=== PATIENT | male | born 1995 | race Caucasian/White ===

== ENCOUNTER 2018-07-31 20:32 | Emergency (ER) | payer MEDICAID ==
[~2018-07-31] VITALS: Ht 177.8 cm; Wt 131.5 kg
[2018-07-31 20:37] VITALS: BP 122/75
--- NOTE | 2018-07-31 20:40 | NUR ---
TO LOBBY A/W BED AND XRAY, AMBULATORY.
[2018-07-31] MEDS ORDERED: IBUPROFEN 600 MG TAB PO ONE (21:30)
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
[2018-07-31 21:50] VITALS: BP 125/76
== END 2018-07-31 21:50 | disposition home or self-care (01) ==
LOC: MED 20:32
DX: S16.1XXA Strain of muscle, fascia and tendon at neck level, initial encounter (principal); M25.511 Pain in right shoulder; R51 Headache; V89.2XXA Person injured in unspecified motor-vehicle accident, traffic, initial encounter; Y93.89 Activity, other specified; Y92.89 Other specified places as the place of occurrence of the external cause; Y99.8 Other external cause status
CPT/HCPCS: 72040; 73030; 99283

== ENCOUNTER 2021-08-15 22:13 | Emergency (ER) | payer BC, MEDICAID ==
[~2021-08-15] VITALS: Ht 172.7 cm; Wt 145.1 kg
[2021-08-15 22:34] VITALS: BP 134/83
--- NOTE | 2021-08-15 23:11 | NUR ---
Patient ambulated to bed 9.
--- NOTE | 2021-08-15 23:31 | NUR ---
PT AMBULATED TO RESTROOM
--- NOTE | 2021-08-16 00:24 | NUR ---
Dr. Gaspar at bedside to exam patient.
[2021-08-16] MEDS ORDERED: NACL 0.9% 1,000 ML IV ONE (00:35)
[2021-08-16] MEDS ORDERED: DICYCLOMINE 20 MG/2 ML VIAL IM ONE ×2 (00:35→01:44)
[2021-08-16] MEDS ORDERED: ONDANSETRON 4 MG/2 ML VIAL IVP ONE (00:35)
--- NOTE | 2021-08-16 00:48 | NUR ---
LAB AT BEDSIDE
[2021-08-16 00:56] LABS: BASOPHILS % (AUTO) 0.2 % (0.0-2.0); EOSINOPHILS # (AUTO) 0.1 K/uL (0-0.4); EOSINOPHILS % (AUTO) 1.1 % (0.0-4.0); HEMATOCRIT 42.7 % (36-52); LYMPHOCYTES % (AUTO) 25.2 % (20.5-51.1); MEAN CORPUSCULAR HEMOGLOBIN 26 pg (27-31); MEAN CORPUSCULAR HGB CONC 33 g/dL (33-37); MEAN CORPUSCULAR VOLUME 78.6 fL (80-94); MONOCYTES % (AUTO) 8.4 % (1.7-9.3); NEUTROPHILS # (AUTO) 7.6 K/uL (1.8-7.7); NEUTROPHILS % (AUTO) 65.1 % (42.2-75.2); PLATELET COUNT (AUTO) 302 K/uL (140-450); RED BLOOD CELL COUNT(AUTO) 5.43 MIL/uL (4.20-6.10); RED CELL DISTRIBUTION WIDTH 14.9 % (11.6-13.7); WHITE BLOOD COUNT (AUTO) 11.7 K/uL (4.8-10.8)
[2021-08-16 01:20] LABS: ALBUMIN 3.8 g/dL (3.4-5.0); ANION GAP 10.7 (8-16); CARBON DIOXIDE 30.8 mmol/L (21-32); CREATININE 0.8 mg/dL (0.6-1.3); POTASSIUM 3.5 mmol/L (3.5-5.1); TOTAL BILIRUBIN 0.3 mg/dL (0.0-1.0)
[2021-08-16] MEDS ORDERED: ONDANSETRON 4 MG/2 ML VIAL ONE (01:44)
[2021-08-16] MEDS ORDERED: BEN10 PO (03:11)
[2021-08-16] MEDS ORDERED: ONDA-188 PO (03:11)
--- NOTE | 2021-08-16 03:25 | NUR ---
PER FRANCISCA HERNANDEZ PT OK FOR D/C W/O URINE DIP.
[2021-08-16 03:32] VITALS: BP 107/57
--- NOTE | 2021-08-16 03:32 | NUR ---
Patient discharged with v/s stable. Written and verbal after care instructions given and explained. Patient alert, oriented and verbalized understanding of instructions. Ambulatory with steady gait. All questions addressed prior to discharge. ID band removed. Patient advised to follow up with PMD. Rx of CHUCKIE DIAZ given. Patient educated on indication of medication including possible reaction and side effects. Opportunity to ask questions provided and answered.
== END 2021-08-16 03:32 | disposition home or self-care (01) ==
LOC: MED 22:13
DX: R11.2 Nausea with vomiting, unspecified (principal); R19.7 Diarrhea, unspecified; R10.9 Unspecified abdominal pain; Z79.899 Other long term (current) drug therapy
CPT/HCPCS: 36415; 80053; 83690; 85025; 96361; 96374; 96375; 99284; J0500; J2405; J7030

== ENCOUNTER 2022-03-22 03:10 | Emergency (ER) | payer BC ==
[~2022-03-22] VITALS: Ht 172.7 cm; Wt 147.0 kg
[~2022-03-22 03:10] MED LIST: BEN10 PO; ONDA-188 PO
[2022-03-22 03:13] VITALS: BP 132/80
--- NOTE | 2022-03-22 04:41 | NUR ---
Dr. Gaspar examining patient.
[2022-03-22] MEDS ORDERED: KETOROLAC 30 MG/ML VIAL IM ONE (04:45)
[2022-03-22] MEDS ORDERED: NAPR-54 PO (04:53)
[2022-03-22] MEDS ORDERED: ACET-10509 PO (04:53)
[2022-03-22 05:18] VITALS: BP 116/76
--- NOTE | 2022-03-22 05:18 | NUR ---
Patient discharged with v/s stable. Written and verbal after care instructions given and explained. Patient alert, oriented and verbalized understanding of instructions. Ambulatory with steady gait. All questions addressed prior to discharge. ID band removed. Patient advised to follow up with PMD. Rx of Naproxen and Tylenol given. Patient educated on indication of medication including possible reaction and side effects. Opportunity to ask questions provided and answered.
== END 2022-03-22 05:18 | disposition home or self-care (01) ==
LOC: MED 03:10
DX: B09 Unspecified viral infection characterized by skin and mucous membrane lesions (principal); Z79.899 Other long term (current) drug therapy
CPT/HCPCS: 96372; 99283; J1885

== ENCOUNTER 2022-05-18 18:24 | Emergency (ER) | payer BC ==
[~2022-05-18] VITALS: Ht 172.7 cm; Wt 145.1 kg
[~2022-05-18 18:24] MED LIST changes: +ACET-10509 PO; +NAPR-54 PO
[2022-05-18 18:32] VITALS: BP 101/80
--- NOTE | 2022-05-18 18:33 | NUR ---
PT AMBULATED TO LOBBY
--- NOTE | 2022-05-18 18:36 | NUR ---
PT AMBULATED TO BED 12
--- NOTE | 2022-05-18 18:45 | NUR ---
26 Y/O M. PATIENT PRESENTS TO ED WITH N/V/D. PT STATES N/V/D FOR 3 DAYS AGO; DENIES TAKING ANY MEDS FOR DIARRHEA. SKIN IS PINK/WARM/DRY; AAOX4 WITH EVEN AND STEADY GAIT; LUNGS CLEAR BL; HR EVEN AND REGULAR; PT DENIES ANY FEVER, CP, SOB, OR COUGH AT THIS TIME; PATIENT STATES PAIN OF 0/10 AT THIS TIME; VSS; PATIENT POSITIONED FOR COMFORT; HOB ELEVATED; BEDRAILS UP X2; BED DOWN. ER MADE AWARE OF PT STATUS. PMH: NONE MEDS: NONE NKA
[2022-05-18] MEDS ORDERED: ONDANSETRON 4 MG ODT PO ONE (18:55)
[2022-05-18] MEDS ORDERED: ALUMINUM HYD/MAG/SIMETHICONE 30 ML, DICYCLOMINE HCL LIQUID 20 MG, LIDOCAINE VISCOUS 2% ... PO ONE ×3 (18:55)
[2022-05-18] MEDS ORDERED: ALUMINUM HYD/MAG/SIMETHICONE 30 ML UDC ONE (18:58)
[2022-05-18] MEDS ORDERED: DICYCLOMINE HCL LIQUID 10 MG/5 ML UDC ONE (18:58)
[2022-05-18 19:18] LABS: BASOPHILS % (AUTO) 0.3 % (0.0-2.0); EOSINOPHILS # (AUTO) 0.1 K/uL (0-0.4); EOSINOPHILS % (AUTO) 1.5 % (0.0-4.0); HEMATOCRIT 40.8 % (36-52); HEMOGLOBIN 13.6 g/dL (12.0-18.0); LYMPHOCYTES % (AUTO) 30.8 % (20.5-51.1); MEAN CORPUSCULAR HEMOGLOBIN 25 pg (27-31); MEAN CORPUSCULAR HGB CONC 33 g/dL (33-37); MEAN CORPUSCULAR VOLUME 76.2 fL (80-94); MONOCYTES # (AUTO) 0.7 K/uL (0.8-1.0); MONOCYTES % (AUTO) 7.2 % (1.7-9.3); NEUTROPHILS # (AUTO) 5.8 K/uL (1.8-7.7); NEUTROPHILS % (AUTO) 60.2 % (42.2-75.2); PLATELET COUNT (AUTO) 294 K/uL (140-450); RED BLOOD CELL COUNT(AUTO) 5.35 MIL/uL (4.20-6.10); RED CELL DISTRIBUTION WIDTH 15.1 % (11.6-13.7); WHITE BLOOD COUNT (AUTO) 9.6 K/uL (4.8-10.8)
--- NOTE | 2022-05-18 19:30 | NUR ---
Patient resting in bed, A/Ox4, chest rise and fall symmetrical, no s/s of distress.
--- NOTE | 2022-05-18 19:30 | NUR ---
Nelia veloz in EDM - 05/18/22 at 2004 by [id number] Patient resting in bed, A/Ox4, chest rise and fall symmetrical, no s/s of distress.
--- NOTE | 2022-05-18 19:42 | NUR ---
ENDORSED TO VALET ATTENDANT NURSE FOR CONTINUITY OF CARE. PT IS STABLE.
[2022-05-18 19:44] LABS: ALBUMIN 3.9 g/dL (3.4-5.0); ANION GAP 12.3 (8-16); CREATININE 0.8 mg/dL (0.6-1.3); POTASSIUM 3.3 mmol/L (3.5-5.1)
--- NOTE | 2022-05-18 19:50 | NUR ---
Patient resting in bed, A/Ox4, chest rise and fall symmetrical, no s/s of distress.
[2022-05-18] MEDS ORDERED: ONDA-188 PO (20:12)
[2022-05-18] MEDS ORDERED: BEN10 PO ×2 (20:12→20:13)
[2022-05-18 20:21] VITALS: BP 108/95
== END 2022-05-18 20:25 | disposition home or self-care (01) ==
LOC: MED 18:24
DX: R11.10 Vomiting, unspecified (principal); R19.7 Diarrhea, unspecified
CPT/HCPCS: 36415; 80053; 83690; 85025; 99283; Q0162

== ENCOUNTER 2022-05-27 20:17 | Emergency (ER) | payer BC ==
[~2022-05-27] VITALS: Ht 172.7 cm; Wt 145.1 kg
[2022-05-27 20:35] VITALS: BP 125/90
--- NOTE | 2022-05-27 20:38 | NUR ---
to lobby a/w bed ambulatory
[2022-05-27] MEDS ORDERED: ONDANSETRON 4 MG/2 ML VIAL IM ONE (23:05)
--- NOTE | 2022-05-27 23:20 | NUR ---
Patient discharged with v/s stable. Written and verbal after care instructions given and explained. Patient verbalized understanding. Ambulatory with steady gait. All questions addressed prior to discharge. Advised to follow up with PMD.
== END 2022-05-27 23:20 | disposition home or self-care (01) ==
LOC: MED 20:17
DX: R11.2 Nausea with vomiting, unspecified (principal); R10.13 Epigastric pain; Z79.899 Other long term (current) drug therapy
CPT/HCPCS: 99283; J2405